=== PATIENT | male | born 1965 | race Caucasian/White ===

== ENCOUNTER 2022-04-15 18:37 | Emergency (ER) | payer BC, SELFPAY ==
[2022-04-15 18:47] VITALS: BP 0/0; PULSE 0; RESP 0; TEMP -17.7; TEMP 0; O2SAT 0; BMI 32.5
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
--- NOTE | 2022-04-15 19:01 | PC.NURSE ---
Case # [id number] [facility] Jeyson JIN
--- NOTE | 2022-04-15 19:30 | MHC.EDTECH ---
[facility] Called at 1920 per spoke with Conchita reddy,speaking with at this time.
--- NOTE | 2022-04-15 19:37 | MHC.EDTECH ---
Patient was accepted by the State Comptroller at 2035. Case Number is [id number].Rn aware
--- NOTE | 2022-04-15 20:03 | MHC.EDTECH ---
Spoke with [facility] at 2000 they did accept .Rn and aware
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
[2022-04-16 06:58] LABS: Glucose, Whole Blood 125 mg/dL (60-115)
== END 2022-04-15 22:15 | disposition expired ==
PROVIDERS: Emergency Provider Emergency Medicine
DX: I46.9 Cardiac arrest, cause unspecified (principal); N40.0 Benign prostatic hyperplasia without lower urinary tract symptoms; E03.9 Hypothyroidism, unspecified
CPT/HCPCS: 82947; 99283; 99284